=== PATIENT | male | born 1950 | race Asian ===

== ENCOUNTER 2024-02-19 08:26 | Inpatient (IN) | payer MEDICARE, OTHER, SELFPAY ==
[2024-02-19] VITALS (19 sets, daily range): BP systolic 105–203; BP diastolic 63–168
[2024-02-19 06:38] LABS: % Basophils 0.3 % (0-2); % Eosinophils 0.8 % (0-6); % Immature Granulocytes 0.6 % (0-0.5); % Lymphocytes 23.8 % (20.5-51.1); % Monocytes 6.3 % (1.7-9.3); % Neutrophils 68.2 % (42.2-75.2); Absolute Eosinophils 0.1 10^3/uL (0-0.7); Absolute Immature Granulocytes 0.1 10^3/uL (0-0.05); Absolute Lymphocytes 2.2 10^3/uL (1.2-3.4); Absolute Monocytes 0.6 10^3/uL (0.1-0.6); Absolute Neutrophils 6.3 10^3/uL (1.4-6.5); Hematocrit 39.4 % (39.0-52.0); Hemoglobin 14.1 g/dL (13.0-18.0); Mean Corp Hgb Conc. 35.8 g/dL (33.0-37.0); Mean Corpuscular Volume 86.6 fL (80.0-94.0); Mean Platelet Volume 9.8 fL (7.4-10.4); Nucleated Red Blood Cells % 0 % (-); Platelet Count 182 10^3/uL (130-400); Red Blood Cell Count 4.55 10^6/uL (4.70-6.10); Red Cell Dist. Width 12.3 % (11.5-14.5); White Blood Cell Count 9.3 10^3/uL (4.8-10.8)
[2024-02-19] MEDS: NITROSTAT (SUBLINGUAL) 0.4 MG SL (06:39)
[2024-02-19 06:49] LABS: ALT (SGPT) 21 U/L (0-50); AST (SGOT) 18 U/L (17-59); Albumin 3.4 g/dl (3.5-5.0); Alkaline Phosphatase 58 U/L (38-126); Blood Urea Nitrogen 15 mg/dl (9-20); Calcium 7.9 mg/dl (8.4-10.2); Carbon Dioxide 21 mmol/L (22-30); Chloride 102 mmol/L (98-107); Glucose 222 mg/dl (70-99); Potassium 3.4 mmol/L (3.5-5.1); Sodium 132 mmol/L (135-145); Total Bilirubin 0.6 mg/dl (0.2-1.3); Total Protein 5.7 g/dl (6.3-8.2); eGFR > 60.00
[2024-02-19 07:02] LABS: Troponin I < 0.012 ng/ml
--- NOTE | 2024-02-19 07:03 | ED.GENMED ---
History of Present Illness
General
Chief Complaint: Chest Pain
Source: patient
Time Seen by Provider: 02/19/24 06:29
History of Present Illness
History of Present Illness:
73-year-old Swedish speaking gentleman presents to the emergency room via ambulance with chest pain. History obtained with the use of a Swedish stoneworking sander. Patient was 'checking properties' when he developed pain which he indicates starts at the top
of his throat and goes down to his sternum. It is severe. It radiates down his right arm. Patient has had previous discomfort such as this but never had it checked out because it went away on its own. Patient also has been experiencing night
sweats and has had about a 10 pound weight loss. He is in the process of an evaluation by his primary care provider. Paramedics were unsure if the patient symptoms were GI or cardiac while en route so he did not receive any medication. Patient
endorses smoking about 1/2 pack a day.
Phy Exam
Physical Exam
Physical Exam:
General: Awake, Alert, Oriented X3. Appears uncomfortable
Vitals: unremarkable
Head: Atraumatic
Eyes: Pupils equal, EOMI
Throat: Airway intact, no exudates
Neck: Trachea midline
Lungs: Clear and equal b/l
Heart: Regular rate, no murmurs
Abd: Soft, Nontender, No pulsatile mass
Neuro: Nonfocal
Skin: Warm, dry, no rash
Extremities: pulses equal b/l, no edema
Scores
Heart Score for Chest Pain Patients
STEMI patient?: Yes
Course
Orders/Labs/Results
Orders:
Orders
02/19/24 06:19
Electrocardiogram (*1) Urgent
Reason for Study: Chest Pain
Cardiac Monitoring- Treatment ONCE
EKG- Treatment ONCE
IV Insert/Care/Rem.- Treatment PRN
O2 Therapy [RESP] Urgent
Titrate/Wean O2 to maintain O2 sat greater than (%): 90
Special Instructions: Maintain sats >/=90%
Pulse Ox/spot Check [RESP] Urgent
Quantity: 1
Special Instructions: ON ROOM AIR
02/19/24 06:25
Comprehensive Metabolic Panel Urgent
02/19/24 06:26
Complete Blood Count/With Diff Urgent
Troponin I Urgent
02/19/24 06:34
Nitroglycerin Sublingual [Nitrostat (Sublingual)] 0.4 mg .ROUTE .STK-MED ONE
02/19/24 06:38
Nitroglycerin Sublingual [Nitrostat (Sublingual)] 0.4 mg SL NOW STA
02/19/24 06:45
EKG [Electrocardiogram (*1)] Urgent
Reason for Study: Chest Pain
02/19/24 06:46
EKG- Treatment ONCE
02/19/24 06:51
Heparin 5,000 units .ROUTE .STK-MED ONE
02/19/24 07:18
Heparin 1000 Units/500 ml [Heparin] 1,000 units in 500 ml .ROUTE .STK-MED
Heparin Sodium,Porcine/Ns/Pf [Heparin 2000 Units/1000 ml] 2,000 unit in 1,000 ml .ROUTE .STK-MED
Lidocaine HCl/Pf [Xylocaine-Mpf 1% Vial] 100 mg .ROUTE .STK-MED ONE
Nitroglycerin [Tridil] 1,500 mcg .ROUTE .STK-MED ONE
Verapamil Injectable [Isoptin/Verapamil Injection] 5 mg .ROUTE .STK-MED ONE
02/19/24 07:27
Fentanyl Citrate/Pf [Sublimaze] 100 mcg .ROUTE .STK-MED ONE
Heparin 10,000 units .ROUTE .STK-MED ONE
Midazolam HCl [Versed] 2 mg .ROUTE .STK-MED ONE
02/19/24 07:34
Aspirin Chewable [Low Strength Aspirin] 324 mg .ROUTE .STK-MED ONE
Heparin 5,000 units .ROUTE .STK-MED ONE
Ticagrelor [Brilinta] 180 mg .ROUTE .STK-MED ONE
Abnormal Lab Results
02/19/24 02/19/24 02/19/24
06:25 06:26 07:34
RBC 4.55 L 10^6/uL
(4.70-6.10)
Abs Immat Gran (auto) 0.1 H 10^3/uL
(0-0.05)
Immature Gran % 0.6 H %
(0-0.5)
Sodium 132 L mmol/L
(135-145)
Potassium 3.4 L mmol/L
(3.5-5.1)
Carbon Dioxide 21 L mmol/L
(22-30)
Creatinine 0.6 L mg/dL
(0.7-1.3)
Glucose 222 H mg/dl
(70-99)
Calcium 7.9 L mg/dl
(8.4-10.2)
Total Protein 5.7 L g/dl
(6.3-8.2)
Albumin 3.4 L g/dl
(3.5-5.0)
POC ACT Low Range 229 H Seconds
(116-155)
02/19/24 06:26
02/19/24 06:25
Vital Signs
Initial and Last Documented VS:
Initial Vital Signs
Pulse Resp BP
75 18 146/87
02/19/24 06:18 02/19/24 06:18 02/19/24 06:18
Last Documented Vital Signs
Temp Pulse Resp BP Pulse Ox
98 F 71 20 123/70 96
02/19/24 08:27 02/19/24 07:10 02/19/24 08:27 02/19/24 07:10 02/19/24 08:27
MDM/Problems Addressed
Differential Diagnosis Includes:
Acute coronary syndrome, NSTEMI, STEMI, pericarditis, GERD
MDM/Problems Addressed:
Patient presents with chest pain. Pain is severe. Patient has significant cardiac risk factors including hypercholesterolemia, smoking and diabetes. Patient's initial EKG was noted to have some ST irregularities v2 and v3 without an old EKG to
compare with. Unclear if these changes were LVH with strain. Repeat EKG showed more prominent ST elevation in leads V2 and V3. Again there are no reciprocal changes. However given the patient's presentation of severe crushing chest pain I
believe that the EKG changes represent a ST elevation OH. STEMI alert called. Patient will be taken to the Instrumentation And Controls Designer. Case discussed with Dr. Chávez.
*Pulse Oximetry
Patient hypoxic: no
*EKG
Interpreted by ED Provider?: Yes
Heart Rate: 73
Rate: normal
Rhythm: sinus
Ischemia: ST elevation (v2-v3)
*Endless Bed Drum Sander Interpretation
Rate: normal
Interpretation: normal
Rhythm: sinus
*Critical Care Note
Total Time (30-74mins, 75-104mins- exclusive of procedures): 30 min
comment:
Critical care statement: A total of 30 minutes of critical care time was provided for this patient. This includes management of unstable vital signs, evaluation of the patient at bedside, reviewing the patient's pertinent medical records, discussion
with consultants, review of old EKGs and review of pertinent medical records. This time with separate from time utilized to perform the aforementioned documented procedures
ED Attending Note
-
Portions of this chart may have been created with voice recognition software.� Occasional wrong word or��sound alike� substitutions may have occurred due to the inherent limitations of voice recognition software.
Discharge Plan
Departure
Patient Disposition: Admit
Date of Disposition: 02/19/24
Time of Disposition: 07:37
Admit to: lab support technician
Presentation/result/management discussed w/ accepting MD/DO: Dr. Chávez
Condition: Serious
Discharge Problem:
Acute chest pain
Interventions
Interventions:
*Risk Screen - Suicide Last Done: 02/19/24 06:19
*General Assessment Last Done: 02/19/24 06:19
*Neglect/Abuse Screening Last Done: 02/19/24 06:19
ED- Fall Risk Assessment Last Done: 02/19/24 06:42
*ED COVID-19 Vaccine History Last Done: 02/19/24 07:01
*Nursing Disposition Last Done: 02/19/24 07:19
ED- Cardiac Assessment Last Done: 02/19/24 06:42
Discharge Date and Time
Discharge Date/Time: 02/19/24 08:51
[2024-02-19 07:39] LABS: ACT-LR - POC 229 Seconds (116-155)
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
--- NOTE | 2024-02-19 10:53 | PTCARENOTE ---
received pt post cath, pt oriented to unit. right radial is CDI. pt denies cp at this time. pt does c/o of nausea, notified miryam marcelo. pt resting in bed with family at bedside. pt and family educated on plan of care and pt verbalized
understanding. call geronimo within reach.
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
[2024-02-19 13:40] LABS: Lipase 115 U/L (23-300)
[2024-02-19 14:11] LABS: Glucose - Point of Care 177 mg/dl (70-99)
[2024-02-19] MEDS: PROTONIX 40 MG PO (14:13)
[2024-02-19] MEDS: FLOMAX 0.4 MG PO (14:13)
[2024-02-19] MEDS: NOVOLOG FLEXPEN-LOW RESISTANCE 1 UNITS SC (15:13)
[2024-02-19 16:08] LABS: TSH Reflex To Free T4 0.54 uIU/ml (0.47-4.68)
[2024-02-19] MEDS: OMNIPAQUE 50 ML PO (16:09)
--- NOTE | 2024-02-19 16:20 | PTCARENOTE ---
pt continues to be sr on the monitor, hr in the 60s, vss. pt offers no complaints at this time. educated pt and family on plan of care for the evening and both verbalized understanding. right radial band is cdi. pt ambulating in room and tolerating
well. call geronimo within reach.
[2024-02-19] MEDS: LOVENOX 40 MG SC (19:06)
[2024-02-19] MEDS: LIPITOR 20 MG PO (19:06)
[2024-02-19] MEDS: NICODERM TRANSDERMAL TRANSDERM (19:07)
--- NOTE | 2024-02-19 19:10 | PTCARENOTE ---
pt continues to be sr on the monitor, vss. pt offers no complaints at this time. pt educated on plan of care and pt verbalized understanding. call geronimo within reach.
[2024-02-19 21:20] LABS: Glucose - Point of Care 279 mg/dl (70-99)
--- NOTE | 2024-02-19 23:44 | PTCARENOTE ---
received patient at the change of shift. AAOx3. family at the bedside. denies any pain. SR 60s-70s. bp stable. R radial site CDI. patient makes needs known and verbalized understanding. updated son as well. ambulating in the room independently. call
geronimo within reach.
[2024-02-20 04:57] VITALS: BP 107/63
[2024-02-20 05:21] LABS: % Basophils 0.7 % (0-2); % Eosinophils 1.4 % (0-6); % Immature Granulocytes 0.6 % (0-0.5); % Lymphocytes 36.6 % (20.5-51.1); % Monocytes 8.1 % (1.7-9.3); % Neutrophils 52.6 % (42.2-75.2); Absolute Basophils 0.1 10^3/uL (0-0.2); Absolute Eosinophils 0.1 10^3/uL (0-0.7); Absolute Lymphocytes 2.6 10^3/uL (1.2-3.4); Absolute Monocytes 0.6 10^3/uL (0.1-0.6); Absolute Neutrophils 3.8 10^3/uL (1.4-6.5); Hematocrit 40.1 % (39.0-52.0); Hemoglobin 14.2 g/dL (13.0-18.0); Mean Corp Hgb Conc. 35.4 g/dL (33.0-37.0); Mean Corpuscular Hgb 31.3 pg (27.0-31.0); Mean Corpuscular Volume 88.5 fL (80.0-94.0); Mean Platelet Volume 9.7 fL (7.4-10.4); Nucleated Red Blood Cells % 0 % (-); Platelet Count 177 10^3/uL (130-400); Red Blood Cell Count 4.53 10^6/uL (4.70-6.10); Red Cell Dist. Width 12.8 % (11.5-14.5); White Blood Cell Count 7.2 10^3/uL (4.8-10.8)
[2024-02-20 05:22] LABS: Urine Albumin Negative (Neg - Trace); Urine Bilirubin Negative (Negative); Urine Character Clear (Clear); Urine Color Yellow; Urine Glucose Trace (Negative); Urine Ketone Negative (Negative); Urine Leukocyte Negative (Negative); Urine Nitrite Negative (Negative); Urine Occult Blood Negative (Negative); Urine Specific Gravity 1.015 (<1.030); Urine Urobilinogen Negative (Neg - 1+); Urine pH 6.5 (5.0-9.0)
[2024-02-20 05:53] LABS: Blood Urea Nitrogen 14 mg/dl (9-20); Calcium 9.3 mg/dl (8.4-10.2); Carbon Dioxide 25 mmol/L (22-30); Chloride 105 mmol/L (98-107); Glucose 214 mg/dl (70-99); HDL Cholesterol 52 mg/dl; LDL Cholesterol, Calculated 59 mg/dl; Magnesium 2.3 mg/dl (1.6-2.3); Potassium 4.4 mmol/L (3.5-5.1); Sodium 138 mmol/L (135-145); Total Cholesterol 126 mg/dl (50-199); Triglyceride 78 mg/dl (10-149); Very Low Density Lipoprotein 15 mg/dl (0-30); eGFR > 60.00
[2024-02-20 08:22] LABS: Glycohemoglobin (HgbA1c) 8.3 % (4.0-5.6)
[2024-02-20 08:35] VITALS: BP 111/65
[2024-02-20 08:39] LABS: Glucose - Point of Care 338 mg/dl (70-99)
[2024-02-20] MEDS: NOVOLOG FLEXPEN-LOW RESISTANCE 4 UNITS SC (08:51)
[2024-02-20] MEDS: LOW STRENGTH ASPIRIN 81 MG PO (08:54)
[2024-02-20] MEDS: PROSCAR 5 MG PO (08:54)
[2024-02-20] MEDS: NICODERM TRANSDERMAL 7 MG TRANSDERM (08:54)
[2024-02-20] MEDS: PROTONIX 40 MG PO (08:54)
[2024-02-20] MEDS: FLOMAX 0.4 MG PO (08:55)
--- NOTE | 2024-02-20 10:38 | PTCARENOTE ---
Pt c/o intermittent throat tightness that lasted about 30 seconds. Pt stated that this happened this morning prior to 8 am. Will monitor.
--- NOTE | 2024-02-20 10:40 | PTCARENOTE ---
Pt's blood glucose 338. Pt admitted to eating very sweet oatmeal prior to blood glucose test. Will monitor.
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
--- NOTE | 2024-02-20 11:04 | W.PN.HOSP.TC ---
Addendum entered and electronically signed by Minh Bueno MD 02/20/24 20:47:
Attending Addendum-
I saw and evaluated the patient. I reviewed the resident�s note and agree with findings and plan as documented in the resident�s note. Sub: D/w patient through use of language line/translation. Complains of intermittent difficulty swallowing and
substernal CP that radiates up esophagus. Complains of intermittent night sweats and 10lb weight loss over 1 month. No further abd pain. Denies abd pain. Full 12 point ROS reviewed and negative except as documented Exam: Vitals reviewed in chart
GEN-NAD moth thrush present, heart RRR lungs clear abd soft NT Le no edema
PLAN:
# Atypical Chest pain-
-seems more of a GI cause
-02/18 Cardiac catheterization- clean coronaries
-troponin WNL
-For Echo per cards
- Continue daily aspirin
- cont PPI
- appreciate GI input- EGD in am 02/20
# Constitutional symptoms
- suspicious for underlying malignancy- needs close OP eval
- Drenching night sweats, 10 lb weight loss in past one month, history of thyroid and lung nodules
- CT C/A/P-Thyroid wyazx-Cmk-atbwmar nodules within both lobes, Mild changes of emphysema, no masses or metastatic disease appreciated
- TSH- wnl
- OP thyroid U/S
- follow pulm nodules
# Probable COPD-
- full PFT's as OP
# BPH:
- cont finasteride and tamsulosin
# GERD:
- PPI
- EGD on 02/20
#Hyperlipidemia:
- cont lipitor
# Lung nodule:
- Current smoker
- OP follow Up
# Type 2 diabetes:
- restart home meds Janumet
- Carb controlled diet
- SSI
# Thrush
- immunocompromised?
- start nystatin swish/swallow after EGD
# Tobacco Abuse
- Nicotine patch
- advised to quit
DVT ppx: Lovenox
Dispo Likely DC 02/20 after EGD
Code status: Full Code
Time spent coordinating care, review of plan of care with resident, personally reviewed records in EMR, use of language line, med rec, consults, notes, labs, radiology, d/w nursing � 58 mins
Original Note:
Today's Communication/Plan
-
GI eval, Accuchecks, SSI, telemetry
Assessment / Plan
Assessment / Plan
IMPRESSION: 73 year old M with history of hyperlipidemia, type 2 diabetes, current tobacco use, chronic abdominal symptoms, drenching night sweats and weight loss.
PLAN:
Chest pain:
EKG with anterior ST elevation
CAD vs other angina vs GI cause
S/P Cardiac catheterization with no evidence of CAD
Normal troponin, no events on telemetry
- Continue daily aspirin
- Continue Atorvastatin
- Optimize cardiovascular risk factor. HbA1c
- Consider GI cause
Abdominal pain, nausea, vomiting:
Epigastric and LUQ tenderness on exam:
Lipase normal
CT chest/abd/pelv: no acute abnormality consistent with symptoms
- continue Zofran for nausea
- continue PPI
- GI consult
Constitutional symptoms
Chronic
Drenching night sweats, 10 lb weight loss in past one month, history of thyroid and lung nodules
- Normal TSH
- CT chest/abd/pel: No metastatic disease, bilateral thyroid nodules
- Consider medication adverse effect, pt is on JanuMet
BPH:
Incontinence, dysuria, retention, nocturia
Urinalysis normal
- Bladder scan protocol
- Consider chronic prostatitis
GERD:
Per patient, he used to take medication for recurrent heartburn but stopped taking this.
- PPI
Hyperlipidemia:
- Lipid panel
Lung nodule:
Current smoker
- CT chest/abd/pel: Evidence of emphysema. No evidence of lung metastatic disease
-
thyroid nodule:
- Will check TSH
- Pt is actively being worked up by PCP, recent thyroid US
Type 2 diabetes:
Hold home antiglycemics
- HbA1c 8.3
- Carb controlled diet
- SSI
- Outpatient follow up with PCP recommended
Current smoker:
- Nicotine patch
- Smoking cessation counselling
DVT ppx: Lovenox
Code status: Full Code
Anticipated Discharge: Today
Subjective/Interval History
-
Date of Service: February 20, 2024
Patient complains of intermittent chest/throat pain, most recent episode this morning - unable to sallow during episodes. Resolve within 30 seconds with no intervention
Ongoing nausea after meals, night sweats
Abdominal pain resolved
Objective Data
-
Labs:
Laboratory Results
02/20/24
05:05
WBC 7.2
Hgb 14.2
Hct 40.1
Plt Count 177
Sodium 138
Potassium 4.4 D
Chloride 105
Carbon Dioxide 25
BUN 14
Creatinine 0.8
Glucose 214 H
Calcium 9.3
Vital Signs:
Vital Signs
Temp Pulse Resp BP Pulse Ox
98.3 F 63 18 111/65 98
02/20/24 08:23 02/20/24 10:15 02/20/24 08:23 02/20/24 08:35 02/20/24 08:23
I&O
02/19/24 02/20/24 02/21/24
06:59 06:59 06:59
Intake Total 480 / 480
Output Total 825 / 825
Balance -345 / -345
Review of Systems
-
History Source: Patient
Constitutional: Reports Night Sweats and Other (reduced appetite)
Respiratory: Denies Cough or Trouble Breathing
Cardiac: Denies Chest Pain or Palpitations
Abdomen/GI: Denies Abdominal Pain, Nausea (after meals), Diarrhea or Constipated
Genitourinary: Reports Dysuria (urethral pain with urination), Frequency, Incontinence, Difficulty Voiding and Urgency
Physical Exam
-
General: No Apparent Distress and Comfortable
HEENT: Moist Mucous Membranes; Negative Nodules
Respiratory: Clear to Auscultation and Non Labored Respirations; Negative Wheezes, Rales, Rhonchi or Crackles
Cardiac: Regular Rhythm and S1/S2; Negative Murmur, Rub or Calf Tenderness
GI: Soft, Nontender and Nondistended
Genito-urinary: No Costovertebral Tender
Musculoskeletal: No Cyanosis and No Edema
Skin: Warm and Dry
Neuro: Awake and Alert
Psych: Calm
[2024-02-20 11:41] LABS: ALT (SGPT) 23 U/L (0-50); AST (SGOT) 17 U/L (17-59); Albumin 3.6 g/dl (3.5-5.0); Alkaline Phosphatase 56 U/L (38-126); Direct Bilirubin 0.1 mg/dl (0.0-0.4); Total Bilirubin 0.4 mg/dl (0.2-1.3)
[2024-02-20 12:11] LABS: Lipase 142 U/L (23-300)
[2024-02-20 12:21] LABS: Glucose - Point of Care 155 mg/dl (70-99)
[2024-02-20 12:22] VITALS: BP 118/68
[2024-02-20] MEDS: NOVOLOG FLEXPEN-LOW RESISTANCE 1 UNITS SC (12:53)
[2024-02-20] MEDS: MIRALAX 34 GRAMS PO (12:55)
--- NOTE | 2024-02-20 12:56 | CM ---
Reviewed chart. Met with Mr. Dawson to review discharge plans. Used the stiff neck loader line. He states prior to admission he resides with his spouse in a two story home with five steps to enter. He states he has a full flight of steps to get to
bedroom/full bathroom. He states he has a powder room on the first floor. He states prior to admission he was independent with ambulation and adls. He states he does not have any DME in the home. He states he has a prescription plan and uses
[facility]. Medical work-up in progress. The discharge plan is to return home with his spouse when medically stable.
[2024-02-20 14:06] VITALS: BMI 18.9
[2024-02-20 16:38] VITALS: BP 116/68
[2024-02-20 16:43] LABS: Glucose - Point of Care 272 mg/dl (70-99)
[2024-02-20] MEDS: CARAFATE SUSPENSION 1 GM PO ×2 (16:47→22:40)
[2024-02-20] MEDS: NOVOLOG FLEXPEN-LOW RESISTANCE 3 UNITS SC (16:47)
[2024-02-20] MEDS: LIPITOR 20 MG PO (18:28)
[2024-02-20] MEDS: LOVENOX 40 MG SC (18:28)
--- NOTE | 2024-02-20 19:07 | PTCARENOTE ---
All nursing measures discussed via language line or pt's son. Pt understands and speaks some Pashto.
[2024-02-20 21:47] LABS: Glucose - Point of Care 405 mg/dl (70-99)
[2024-02-20 22:19] LABS: Glucose 426 mg/dl (70-99)
[2024-02-20] MEDS: NOVOLOG FLEXPEN 5 UNITS SC (22:40)
[2024-02-20 22:45] VITALS: BP 106/66
[2024-02-21 00:51] LABS: Glucose - Point of Care 141 mg/dl (70-99)
--- NOTE | 2024-02-21 02:15 | PTCARENOTE ---
Patient ambulating self in room and hallways w/out difficulty. VSS. Denies any chest pain. Patient c/o throat 'itching'. Aware of NPO status at midnight. HS BS w/ a result of RR HI. Stat glucose obtained per protocol. Venous glucose result 426.
Jessicaemir [place] STACY made aware, and orders obtained for 5 units of NovoLog. Medication administered, 2hrs post medication treatment BS checked per order w/ a result of 141. POC ongoing. Call geronimo within reach.
[2024-02-21 06:13] LABS: Glucose - Point of Care 217 mg/dl (70-99)
[2024-02-21 08:19] VITALS: BP 126/73
[2024-02-21] MEDS: CARAFATE SUSPENSION PO (08:21)
[2024-02-21] MEDS: NOVOLOG FLEXPEN-LOW RESISTANCE 2 UNITS SC (08:30)
[2024-02-21 11:37] LABS: Glucose - Point of Care 182 mg/dl (70-99)
[2024-02-21] MEDS: GLUCOPHAGE 500 MG PO (12:02)
[2024-02-21] MEDS: JANUVIA 50 MG PO (12:02)
[2024-02-21] MEDS: LOW STRENGTH ASPIRIN 81 MG PO (12:02)
[2024-02-21] MEDS: FLOMAX 0.4 MG PO (12:03)
[2024-02-21] MEDS: NICODERM TRANSDERMAL 7 MG TRANSDERM (12:03)
[2024-02-21] MEDS: PROSCAR 5 MG PO (12:03)
[2024-02-21] MEDS: PROTONIX 40 MG PO (12:03)
[2024-02-21] MEDS: CARAFATE SUSPENSION 1 GM PO (12:03)
[2024-02-21] MEDS: MIRALAX 17 GRAMS PO (12:07)
[2024-02-21] MEDS: NOVOLOG FLEXPEN-LOW RESISTANCE 1 UNITS SC (12:07)
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
--- NOTE | 2024-02-21 14:06 | W.PN.HOSP.TC ---
Addendum entered and electronically signed by Minh Bueno MD 02/21/24 21:17:
Attending Addendum-
I saw and evaluated the patient. I reviewed the resident�s note and agree with findings and plan as documented in the resident�s note. Sub: D/w patient and through use of language line/translation. seen post egd. states he feels improved. no
difficulty swallowing. No further abd pain. Denies abd pain. Wants to go home. Full 12 point ROS reviewed and negative except as documented Exam: Vitals reviewed in chart GEN-NAD, heart RRR lungs clear abd soft NT Le no edema
PLAN:
# Atypical Chest pain-
-GI related
-02/18 Cardiac catheterization- clear coronary arteries
- Continue daily aspirin
- cont PPI
- Upper GI-02/20-Mild nonspecific esophageal dysmotility, likely presbyesophagus. No stricture or obstruction. No hiatal hernia. No gastroesophageal reflux. Unremarkable echographic appearance of the stomach and duodenum.
# Constitutional symptoms
- suspicious for underlying malignancy- needs close OP eval
- Drenching night sweats, 10 lb weight loss in past one month, history of thyroid and lung nodules
- CT C/A/P-Thyroid bnyae-Xmh-qlcyxzw nodules within both lobes, Mild changes of emphysema, no masses or metastatic disease appreciated
- TSH- wnl
- OP thyroid U/S- d/w patient
- follow pulm nodules - d/w patient
# Probable COPD-
- full PFT's as OP- d/w patient
# BPH:
- cont finasteride and tamsulosin
# GERD:
- PPI
- cont carefate
- f/u GI as OP
#Hyperlipidemia:
- cont lipitor
# Lung nodule:
- Current smoker
- OP follow Up
# Type 2 diabetes:
- uncontrolled HbA1c - 8.3
- cont home meds Janumet
- Carb controlled diet
- SSI
- f/u as OP
# Tobacco Abuse
- Nicotine patch
- advised to quit
- counselled at great length
DVT ppx: Lovenox
Dispo- DC home
Code status: Full Code
Time spent coordinating care, DC planning, review of DC plan of care with resident, transition of care, review of records, med rec/scripts sent electronically, consults, notes, d/w consultants, nursing, family/, PCP, use of language line and CM�
38 mins
Original Note:
Today's Communication/Plan
-
DC planning
Assessment / Plan
Assessment / Plan
IMPRESSION: 73 year old M with history of hyperlipidemia, type 2 diabetes, current tobacco use, chronic abdominal symptoms, drenching night sweats and weight loss.
PLAN:
Chest pain:
EKG with anterior ST elevation
CAD vs other angina vs GI cause
S/P Cardiac catheterization with no evidence of CAD
Normal troponin, no events on telemetry
- Continue daily aspirin 81
- Continue Atorvastatin
- Optimize cardiovascular risk factors. HbA1c 8.3, encourage better glucose control - PCP follow up
- Likely GI cause.
Abdominal and throat pain, nausea, vomiting:
Lipase normal
CT chest/abd/pelv: no acute abnormality consistent with symptoms
Upper GI endoscopy: Mild nonspecific esophageal dysmotility, likely presbyesophagus. No stricture or obstruction. No hiatal hernia. No gastroesophageal reflux. Unremarkable echographic appearance of the stomach and duodenum.
- PRN Zofran for nausea
- continue PPI
- Continue Carafate
- Likely outpatient esophageal manometry
- Appreciate GI recs
Constitutional symptoms
Chronic drenching night sweats, 10 lb weight loss in past one month, history of thyroid and lung nodules
- Normal TSH
- CT chest/abd/pel: No metastatic disease, bilateral thyroid nodules
- No acute cause found from imaging/tests. Will need further outpatient workup with PCP
BPH:
Incontinence, dysuria, retention, nocturia
Urinalysis normal
- Bladder scan protocol
- Will DC with abx for chronic prostatitis
Hyperlipidemia:
- Lipid panel with
Lung nodule:
Current smoker
- CT chest/abd/pel: Evidence of emphysema. No evidence of lung metastatic disease
thyroid nodule:
- Will check TSH
- Pt is actively being worked up by PCP, recent thyroid US
Type 2 diabetes:
Hold home antiglycemics
- HbA1c 8.3
- Carb controlled diet
- Outpatient follow up with PCP recommended
Current smoker:
- Nicotine patch
- I emphasized need for smoking cessation
- Smoking cessation counselling.
- F/U with PCP for smoking cessation plan
DVT ppx: Lovenox
Code status: Full Code
Anticipated Discharge: Today
Subjective/Interval History
-
Date of Service: February 21, 2024
Objective Data
-
Vital Signs:
Vital Signs
Temp Pulse Resp BP Pulse Ox
98 F 68 16 106/66 95
02/20/24 22:45 02/20/24 22:45 02/20/24 22:45 02/20/24 22:45 02/20/24 22:45
I&O
02/20/24 02/21/24 02/22/24
06:59 06:59 06:59
Intake Total 480 / 480 0 / 0
Output Total 825 / 825
Balance -345 / -345 0 / 0
Review of Systems
-
History Source: Patient
Constitutional: Reports Night Sweats
Respiratory: Denies Trouble Breathing
Abdomen/GI: Denies Abdominal Pain, Nausea or Vomiting
Genitourinary: Denies Dysuria
Physical Exam
-
General: Comfortable
HEENT: Normocephalic and Atraumatic
Respiratory: Clear to Auscultation and Non Labored Respirations; Negative Wheezes, Rales, Rhonchi or Crackles
Cardiac: Regular Rhythm and S1/S2; Negative Murmur or Rub
GI: Soft, Nontender, Nondistended and Normal Bowel Sounds
Skin: Warm and Dry
Neuro: Awake and Alert
Psych: Calm
[2024-02-21 15:25] VITALS: BP 119/70
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
== END 2024-02-21 15:31 | disposition home or self-care (01) | DRG 287 ==
LOC: IVU 08:26
PROVIDERS: Student in an Organized Health Care Education/Training Program; ADMITTING PHYSICIAN Emergency Medicine; ATTENDING PHYSICIAN Family Medicine; FAMILY PHYSICIAN Internal Medicine; OTHER PHYSICIAN Internal Medicine Interventional Cardiology
PROC: 4A023N7 Measurement of Cardiac Sampling and Pressure, Left Heart, Percutaneous Approach (ICD-10-PCS; 2024-02-19)
PROC: B2151ZZ Fluoroscopy of Left Heart using Low Osmolar Contrast (ICD-10-PCS; 2024-02-19)
PROC: B2111ZZ Fluoroscopy of Multiple Coronary Arteries using Low Osmolar Contrast (ICD-10-PCS; 2024-02-19)
DX: R07.9 Chest pain, unspecified (principal); Z68.1 Body mass index [BMI] 19.9 or less, adult; F17.210 Nicotine dependence, cigarettes, uncomplicated; N40.1 Benign prostatic hyperplasia with lower urinary tract symptoms; K21.9 Gastro-esophageal reflux disease without esophagitis; E78.00 Pure hypercholesterolemia, unspecified; E78.49 Other hyperlipidemia; E11.43 Type 2 diabetes mellitus with diabetic autonomic (poly)neuropathy; K31.84 Gastroparesis; J43.9 Emphysema, unspecified; N41.1 Chronic prostatitis; R63.4 Abnormal weight loss
CPT/HCPCS: 71260; 74177; 74246; 80053; 80061; 81003; 82248; 82947; 82962; 83036; 83690; 83735; 84443; 84484; 85025; 85347; 93005; 93458; 99152; 99153; 99291; 99406; C1894; Q9967